=== PATIENT | male | born 1975 | race Caucasian/White ===

== ENCOUNTER 2017-07-31 00:37 | Emergency (ER) | payer SELFPAY ==
[~2017-07-31] VITALS: Ht 172.7 cm; Wt 100.0 kg
[2017-07-31 03:22] VITALS: BP 142/89
[2017-07-31] MEDS ORDERED: DEXAMETHASONE 4 MG TABLET PO ONE (04:30)
== END 2017-07-31 05:17 | disposition left against medical advice (07) ==
LOC: EMS 00:43
DX: J02.9 Acute pharyngitis, unspecified (principal); Z88.0 Allergy status to penicillin
CPT/HCPCS: 99281